=== PATIENT | female | born 1970 | race Caucasian/White ===

== ENCOUNTER 2021-04-11 10:28 | Day surgery (SDC) | payer OTHER ==
[2021-04-11] MEDS ORDERED: Depo-Medrol 40 MG/ML IM ONE (10:29)
[2021-04-11] MEDS ORDERED: BUPIVACAINE 0.5% VIAL IJ ONE (10:29)
[2021-04-11] MEDS ORDERED: DIPRIVAN 200 MG/20 ML IV ONE (11:59)
[2021-04-11] MEDS ORDERED: Lactated Ringers 1,000 ML IV ONE (12:19)
--- NOTE | 2021-04-11 12:44 | XRAY ---
Indication: Bilateral hip injections. Intraoperative fluoroscopy provided for 24 seconds. 2 digital spot images submitted for interpretation demonstrates needle tip projecting lateral to the left and right femur necks. Small amount of contrast injected for both needle tip placement. Correlate with intraoperative findings/report.
--- NOTE | 2021-04-11 15:03 | XRAY ---
24 seconds fluoroscopy time in surgery for intra-articular injections of both hips.
== END 2021-04-11 12:22 | disposition home or self-care (01) ==
LOC: SDC-PAIN 10:28
PROVIDERS: ATTEND Psychiatry & Neurology Pain Medicine
DX: M16.0 Bilateral primary osteoarthritis of hip (principal); Z79.899 Other long term (current) drug therapy
CPT/HCPCS: 20610; 73521; 77002; J1030; J2704; Q9966

== ENCOUNTER 2024-02-13 18:43 | Emergency (ER) | payer OTHER ==
[2024-02-13 19:00] VITALS: BP 125/58; PULSE 80; RESP 18; TEMP 97.6; O2SAT 100
--- NOTE | 2024-02-13 19:07 | ERPHSYRPT ---
- History of Present Illness Time Seen by Provider: 02/13/24 19:05 Source: patient Exam Limitations: no limitations Patient Subjective Stated Complaint: C/O right wrist and forearm pain following a fall at home. Patient fell at home just prior to coming into the ER and tried to catch herself when she fell. Triage Nursing Assessment: Patient ambulated back to ER gaurding her RUE. She is alert and oriented. Forearm is swollen. No bruising present at this time. Did not range at this time. Ice pack applied. Allergies/Adverse Reactions: clonazepam Allergy (Verified 02/13/24 18:49) Home Medications: Buspirone HCl 5 mg [Buspar 5 mg] 15 mg PO BID 02/13/24 [History] Tolterodine Tartrate [Tolterodine Tartrate ER] 2 mg PO DAILY 02/13/24 [History] Trazodone HCl 100 mg PO HS 02/13/24 [History] Hx Tetanus, Diphtheria Vaccination/Date Given: Yes Hx Influenza Vaccination/Date Given: Yes Immunizations Up to Date: Yes Travel Risk - International Travel Have you traveled outside of the country in past 3 weeks: No - Emerging Infectious Disease Are you exhibiting symptoms associated with any current EIDs: No - Past Medical History Pertinent Past Medical History: Yes Psycho-Social History: Anxiety, Depression Other Medical History: Insomnia - Past Surgical History Female Surgical History: Hysterectomy Other Surgical History: dermoid tumur removed from uterus - Female History Hx Now: No (hysterectomy) - Social History Smoking Status: Never smoker Exposure to second hand smoke: No Drug Use: none - Social Determinants of Health Will the patient participate in the screening: Yes Do you worry about a steady place to live?: No Do you have any problems with any of the following?: No known problems In the past 12 months,have you had to go without utilities?: No Transportation Issues: No Has anyone in your support network made you feel unsafe?: No Have you or anyone in your house had to go without enough: No - Nursing Vital Signs Nursing Vital Signs: Initial Vital Signs Temperature 97.6 F 02/13/24 18:51 Pulse Rate 80 02/13/24 18:51 Respiratory Rate 18 02/13/24 18:51 Blood Pressure 125/58 02/13/24 18:51 O2 Sat by Pulse Oximetry 100 02/13/24 18:51 Pain Scale Pain Intensity 8 - Physical Exam SpO2: 100 Ordered Tests: Active Orders 24 hr Category Date Time Status FOREARM Stat Exams 02/13/24 18:49 Taken WRIST (MIN 3 VIEWS) Stat Exams 02/13/24 18:49 Taken - Departure Departure Disposition: Home Clinical Impression: Nondisplaced fracture of distal end of right radius Condition: Good Critical Care Time: No Referrals: ADILIA YOST MD [Primary Care Provider] - Follow up/PCP as directed Instructions: Wrist fracture Prescriptions: Hydrocodone/Acetaminophen [Bejou 10-325 mg] 1 tablet PO Q4H PRN PRN 3 Days #18 tablet MDD 6 tab PRN Reason: Moderate To Severe Pain Outpatient Orders: Ortho Referral Time Frame: 1 Day, Facility: [facility], Location: [facility]
[2024-02-13] MEDS ORDERED: NORCO 10-325 MG ONE (19:39)
[2024-02-13] MEDS: NORCO 10-325 MG PO PRN (19:42)
--- NOTE | 2024-02-13 21:51 | XRAY ---
Indication: Pain and swelling following fall. Comparison: None 2 view right forearm demonstrates nondisplaced comminuted fracture distal radius with intra-articular extension. Elsewhere osteopenia and small spurring coronoid process. No other bony, articular, or soft tissue abnormalities.
--- NOTE | 2024-02-13 21:53 | XRAY ---
Indication: Pain and swelling following fall. Comparison: None 3 view right wrist demonstrates nondisplaced comminuted fracture distal radius with intra-articular extension. Elsewhere osteopenia and radiocarpal joint space narrowing. No other bony, articular, or soft tissue abnormalities.
== END 2024-02-13 20:08 | disposition home or self-care (01) ==
LOC: ED 18:43
DX: S52.501A Unspecified fracture of the lower end of right radius, initial encounter for closed fracture (principal); M79.631 Pain in right forearm; M25.531 Pain in right wrist; W19.XXXA Unspecified fall, initial encounter
CPT/HCPCS: 29126; 73090; 73110; 99283; A9270-GY

== ENCOUNTER 2025-01-06 12:48 | Day surgery (SDC) | payer OTHER ==
[2025-01-06] MEDS ORDERED: LIDOCAINE HCL 2% 100 MG/5 ML IJ ONE (12:49)
[2025-01-06] MEDS ORDERED: methylPREDNISolone acetate IM ONE (12:49)
[2025-01-06] MEDS ORDERED: propofoL IV ONE (14:19)
[2025-01-06] MEDS ORDERED: Xylocaine-Mpf 2% 5 Ml Vial ONE (14:20)
[2025-01-06] MEDS ORDERED: Lactated Ringers 1,000 ML IV ONE (14:35)
--- NOTE | 2025-01-06 16:33 | XRAY ---
Indication: Bilateral L4-S1 MBB. Intraoperative fluoroscopy provided for 12 seconds. Single digital spot image submitted for interpretation demonstrates posterior needle tips projecting over expected left and right L4-S1 nerve roots. Correlate with intraoperative findings/report.
--- NOTE | 2025-01-06 17:00 | XRAY ---
12 seconds of fluoroscopy was used in surgery for a bilateral L4-S1 MBB.
== END 2025-01-06 14:53 | disposition home or self-care (01) ==
LOC: SDC-PAIN 12:48
PROVIDERS: ATTEND Psychiatry & Neurology Pain Medicine
DX: M47.817 Spondylosis without myelopathy or radiculopathy, lumbosacral region (principal)